=== PATIENT | female | born 1985 | race Caucasian/White ===

== ENCOUNTER 2019-03-22 06:26 | Inpatient (IN) | payer OTHER ==
[2019-03-22] MEDS ORDERED: Lactated Ringers 1000 ML Bag* 1,000 ML IV ONE (06:56)
[2019-03-22] MEDS ORDERED: ceFOXitin 2 GM IVPREMIX* 2 GM/50 ML BAG IVPB ONE (06:56)
[2019-03-22] MEDS ORDERED: Sodium Citrate/Citric Acid* 15 ML UDC PO ONE (06:56)
[2019-03-22] MEDS ORDERED: Buffered Lidocaine 1% SYRIN* 1 ML/SYRINGE INTRADERM ONE (06:56)
[2019-03-22] MEDS ORDERED: Lactated Ringers 1000 ML Bag* 1,000 ML IV SCH ×2 (07:00→10:00)
--- NOTE | 2019-03-22 07:09 | HP ---
General Information - Reason for Visit Labor evaluation - General Information Maternal Age: 33 Grav: 2 Para: 1 SAB: 0 IEA: 0 Estimated Due Date: 03/29/19 Determined By: LMP Gestational Age in Weeks/Days: 30-07 Maternal Blood Type and Rh: O Negative - Results this Serology/RPR Result: Non-Reactive Rubella Result: Immune HBsAg Result: Negative HIV Result: Negative GBS Culture Result: Positive Past Medical History Delivery History: Hx Uncomplicated Vaginal Delivery Delivery History Comment: 01/2016 7lb male. Delivered at [facility] by Jackie Galvez CNM Pertinent Past Medical History: See Records Past Medical History Comment: H/O Migraine without aura Pertinent Past Surgical History: See Records Past Surgical History Comment: 03/2010 ORIF left ankle Pertinent Family History: See Records Family History Comment: MGM: , Alzheimer's - Antepartal Records Antepartal Records: Reviewed, Complicated by: - Rh Negative. RhoGAM given per protocol at 12/29/18 at 28 weeks. Breech presentation, planned C/S Review of Systems Constitutional: Uncomfortable - with UCs CV Complaint: No Respiratory: Shortness of Breath: No Gastrointestinal: No Nausea/Vomiting Genitourinary: No Dysuria, No Bleeding, No Leaking Fluid Musculoskeletal: Contractions Neurological: No Headache, No Visual Changes Movement: Normal Exam Allergies/Adverse Reactions: Allergies No Known Allergies Allergy (Verified 03/22/19 06:31) Vital Signs 03/22/19 06:59 Temperature 98.3 F Pulse Rate 97 Respiratory 20 Rate Blood Pressure 121/70 (mmHg) O2 Sat by Pulse 100 Oximetry - Measurements Height: 5 ft 3 in Weight: 160 lb Weight in lbs: [phone] Body Mass Index (BMI): 28.3 Pre- Weight: 145 lb Weight Gained This : 15 lbs and 0 ozs - Exam Breast: Breast Exam Deferred CVA: No CVA Tenderness Extremities: No Edema Heart: Normal Rhythm/Heart Sounds HEENT: No Significant Findings Lungs: Clear Bilaterally Rectal: Rectal Exam Deferred Reflexes: DTR 2+ Thyroid: No Thyromegaly - Abdominal Exam Abdomen Exam: Non-Tender - Ultrasound/Biophysical Profile Ultrasound Status: Bedside Exam Ultrasound Findings: Breech position. Cephalic in LUQ Targeted Exam Findings See L&D Outpatient Visit Provider Note for Findings: N/A Presenting Part: Breech - by bedside sono Membrane Status: Intact Sterile Speculum Exam: Not done Bleeding/Discharge: None EFM Findings - External Monitor Findings Baseline Heart Rate: 185 External Monitor Findings: No Pattern of Variable or Late Decelerations, Variability Moderate, Baseline Stable External Monitor Findings Comment: Cat II FHT - tachycardia Contractions: Regular, Moderate Contraction Frequency: q 3-5 min Assessment/Plan - Assessment A: IUP at 39-0/7 weeks Breech presentation Cat II FHT P: Admit. Begin IV fluid. Close monitoring of status. Dr. Biswas, OB called to assess. Anesthesia and Neonatology also notified. - Obstetrical Risk Factors Obstetrical Risk Factors: GBS Positive - Plan Plan: Expedite C/S Delivery - Date/Time of Admission Date of Admission: 03/22/19 Time of Admission: 07:05
[2019-03-22] MEDS ORDERED: ceFOXitin 2 GM IVPREMIX* 2 GM/50 ML BAG ONE (07:11)
[2019-03-22] MEDS ORDERED: Sodium Citrate/Citric Acid* 15 ML UDC ONE (07:11)
[2019-03-22 08:15] LABS: Urine Benzodiazepine Screen None Detected (None Detect); Urine Opiates Screen None Detected (None Detect)
[2019-03-22] MEDS ORDERED: Naloxone* 0.4 MG/ML 1 ML VIAL IV PRN ×2 (08:59→09:00)
[2019-03-22] MEDS ORDERED: fentaNYL* 50 MCG/ML 2 ML VIAL (100 MCG VIAL) IV PRN (08:59)
[2019-03-22] MEDS ORDERED: Ondansetron INJ* 2 MG/ML VIAL IV PRN ×2 (08:59→09:00)
[2019-03-22] MEDS ORDERED: diPHENhydraMINE IV* 50 MG/ML 1 ml VIAL (BENADRYL) IV PRN (09:00)
[2019-03-22] MEDS ORDERED: Scopolamine 1.5 mg* PATCH TRANSDERM PRN (09:00)
[2019-03-22] MEDS ORDERED: DiMENhydriNATE IV* 50 MG/ML VIAL IV PUSH PRN (09:00)
[2019-03-22] MEDS ORDERED: oxyCODONE/Acetamin 5/325 MG* TAB PO PRN (09:00)
--- NOTE | 2019-03-22 09:26 | OP ---
Operative Report - Detailed - Operation Details Date of Operation: 03/22/19 Date of : 03/22/19 Surgeon(s): VANDANA Date Puller(s): LUIS FERNANDO Anesthesiologist(s): NAOMI Anesthesia: SPINAL Pre-Op Diagnosis: BREECH. 39 WEEKS. LABOR Post-Op Diagnosis: SAME Planned Operative Procedure(s): PRIMARY LOW TRANSEVERSE Estimated Blood Loss: 600CCS IV Fluids: IV FLUIDS Specimen(s)/Culture(s) Description: PLACENTA AND CORD Drains: CALLAHAN Counts: CORRECT Wound Classification: CLEAN Complications: NONE Findings: LELAND BREECH TERM FETUS, FEMALE Brief History/Indications: BREECH ,39 WK IUP. LABOR Description of Procedure: PRIMARY L/T
[2019-03-22] MEDS ORDERED: OXYTOCIN* 10 UNITS/ML 1 ML VIAL IM ONE (09:31)
[2019-03-22] MEDS ORDERED: Witch Hazel PAD* JAR TOPICAL PRN (09:31)
[2019-03-22] MEDS ORDERED: RHO D Immune Globulin (HUMAN)* 300 MCG = 1,500 I.U. INJ IM ONE (09:31)
[2019-03-22] MEDS ORDERED: PROCHLORPERAZINE INJ 5 MG/ML 2 ML VIAL IM PRN (09:31)
[2019-03-22] MEDS ORDERED: Dibucaine 1% 28.35 GM TUBE PR PRN (09:31)
[2019-03-22] MEDS ORDERED: Glycerin ADULT SUPP PR PRN (09:31)
--- NOTE | 2019-03-22 10:26 | OP ---
DATE OF OPERATION: 03/22/19 - ROOM #105 DATE OF : 89 TIME OF SURGERY: 30 minutes. SURGEON: Ana Biswas MD [employer] INTEGRATION ENGINEER: Dr. Deleon. ANESTHESIA: Spinal. PRE-OP DIAGNOSIS: A 39-week intrauterine , breech labor. POST-OP DIAGNOSIS: A 39-week intrauterine , breech labor. OPERATIVE PROCEDURE: Primary low transverse section. DRAINS: Reddy. SPECIMEN: Placenta and cord. ESTIMATED BLOOD LOSS: 600 cc. INDICATIONS FOR SURGERY: The patient had a breech in labor at 39 weeks. She was previously scheduled day before; however, she came in day early and so we proceeded with this surgery. FINDINGS: Live born female, matilde breech, 6 pounds 7 ounces, Apgars 9 and 9. The baby was born at 8:42 a.m. COMPLICATIONS: None. DESCRIPTION OF PROCEDURE: The patient was taken to an operatory. After adequate spinal anesthesia was established, she was given an indwelling Reddy catheter. The incision had been previously marked. We had time-out. After the patient was prepped, we then entered the abdominal cavity with a Pfannenstiel incision with a scalpel. Subcutaneous bleeders were cauterized with a Bovie. We entered abdominal cavity anatomically. We entered the uterine incision superior to the bladder flap with a scalpel in a transverse position. The fetus in a matilde presentation was then delivered without any incident. The oropharynx was suctioned. Cord was doubly clamped and cut. Fetus passed over the table to the hotel breakfast attendant in stable condition. Cord blood was obtained. Placenta delivered from the uterus. Uterus delivered extra -abdominally. Uterus was cleaned of debris, membranes, and tissue. Uterine incision was repaired in 2 layers, first layer was in the deep myometrium using running nonlocking #0 Vicryl. Superficial myometrium was closed with the same suture. Vesicouterine peritoneum was repaired with a running 2-0 Vicryl. Uterine incision was hemostatic. Tubes and ovaries appeared to be normal. Gutter was suctioned of blood, tissue, and membranes. All instruments were removed from the abdominal cavity. Instrument count, needle and lap count was correct. The uterus was dropped back to abdominal cavity. Anterior abdominal peritoneum was repaired with running 2-0 Vicryl. Subcutaneous fascia repaired with running 0 Vicryl. Subcutaneous tissue repaired with running 2-0 Vicryl. Skin was repaired with 3-0 Monocryl and draped with Dermabond and the usual coverings for an incision. The patient tolerated the procedure well. She was then returned to the recovery room in stable condition. [id number]/[facility] #: [id number] MTDD
[2019-03-22] MEDS: Acetaminophen TAB* 325 MG PO PRN ×3 (11:06→22:23)
[2019-03-22] MEDS: Ketorolac INJ* 30 MG/ML 1 ML VIAL IV PRN ×3 (11:07→23:56)
[2019-03-22] MEDS: Simethicone TAB* 80 MG TAB.CHEW PO SCH ×3 (11:07→22:23)
[2019-03-22] MEDS: Docusate CAP* 100 MG PO SCH ×2 (16:14→22:23)
[2019-03-22] MEDS ORDERED: Tetan/Diph/Pertus SYR(Tdap)* 0.5 ML SYR(BOOSTRIX) use SYR IM ONE (18:00)
[2019-03-22] MEDS ORDERED: Varicella Virus Vaccine Live* 0.5 ML VIAL SUBCUT ONE (18:00)
[2019-03-22] MEDS ORDERED: Measles, Mumps,Rubella VACC* 0.5 ML/VIAL SUBCUT ONE (18:00)
[2019-03-23] MEDS ORDERED: oxyCODONE/Acetamin 5/325 MG* TAB PO PRN ×2 (00:30)
[2019-03-23] MEDS ORDERED: oxyCODONE TAB* 5 MG TAB PO PRN (00:30)
[2019-03-23] MEDS: Ketorolac INJ* 30 MG/ML 1 ML VIAL IV PRN (05:05)
[2019-03-23] MEDS: Acetaminophen TAB* 325 MG PO PRN ×4 (08:45→21:16)
[2019-03-23] MEDS: Simethicone TAB* 80 MG TAB.CHEW PO SCH ×4 (08:46→21:16)
[2019-03-23] MEDS: Docusate CAP* 100 MG PO SCH ×3 (08:46→21:16)
[2019-03-23] MEDS ORDERED: Ferrous Gluconate TAB* 324 MG TAB PO SCH (09:00)
[2019-03-23 09:17] LABS: ABS Eosinophils 0.1 10^3/ul (0-0.6); ABS Lymphocytes 1.5 10^3/ul (1.0-4.8); ABS Monocytes 0.3 10^3/ul (0-0.8); ABS Neutrophils 8.9 10^3/ul (1.5-7.7); Eosinophil % 0.7 %; Hematocrit 32 % (35-47); Hemoglobin 10.9 g/dL (12.0-16.0); Lymphocyte % 13.8 %; Mean Corpuscular HGB Conc 34 g/dL (31-36); Mean Corpuscular Hemoglobin 30 pg (27-31); Mean Corpuscular Volume 87 fL (80-97); Mean Platelet Volume 8.8 fL (7.4-10.4); Platelet Count 175 10^3/uL (150-450); Red Blood Count 3.71 10^6 /uL (3.70-4.87); Red Cell Distribution Width 15 % (10-15); White Blood Count 10.8 10^3/uL (3.5-10.8)
[2019-03-23] MEDS: Ibuprofen TAB* 600 MG PO PRN ×3 (11:21→23:24)
--- NOTE | 2019-03-23 13:39 | PN ---
Progress Note - Progress Note Date of Service: 03/23/19 Note: S NO C/O'S. O Vital Signs: Temp Pulse Resp BP Pulse Ox 98.2 F 81 18 103/62 99 03/23/19 08:00 03/23/19 08:00 03/23/19 08:00 03/23/19 08:00 03/22/19 23:40 Laboratory Results - last 24 hr 03/23/19 08:59 WBC 10.8 RBC 3.71 Hgb 10.9 L Hct 32 L MCV 87 MCH 30 MCHC 34 RDW 15 Plt Count 175 MPV 8.8 Neut % (Auto) 82.0 Lymph % (Auto) 13.8 Knott % (Auto) 3.1 Eos % (Auto) 0.7 Baso % (Auto) 0.4 Absolute Neuts (auto) 8.9 H Absolute Lymphs (auto) 1.5 Absolute Monos (auto) 0.3 Absolute Eos (auto) 0.1 Absolute Basos (auto) 0.0 Absolute Nucleated RBC 0.0 Nucleated RBC % 0.0 ABD SOFT WOUND NON-TENDER LOCHIA LITE BREAST SOFT A PT IS DOING WELL. REGULAR DIET. CALLAHAN OUT. PD/C IN 2 DAYS.
[2019-03-23] MEDS ORDERED: Zolpidem TAB* 5 MG PO PRN (21:00)
[2019-03-24] MEDS: Acetaminophen TAB* 325 MG PO PRN ×3 (01:30→10:28)
[2019-03-24] MEDS: Ibuprofen TAB* 600 MG PO PRN ×2 (05:29→11:23)
[2019-03-24 07:52] VITALS: BP 109/62
[2019-03-24] MEDS: Docusate CAP* 100 MG PO SCH (08:04)
[2019-03-24] MEDS: Simethicone TAB* 80 MG TAB.CHEW PO SCH (08:04)
[2019-03-25] MEDS ORDERED: Scopolamine PATCH Remove* 1 NOTE MISC PATCH OFF PRN (09:01)
== END 2019-03-24 12:30 | disposition home or self-care (01) | DRG 788 ==
LOC: MCHOBOUT 06:26 → MCHOB 06:58
PROC: 4A1HXCZ Monitoring of Products of Conception, Cardiac Rate, External Approach (ICD-10-PCS; 2019-03-22)
PROC: 10D00Z1 Extraction of Products of Conception, Low, Open Approach (ICD-10-PCS; principal; 2019-03-22 08:18)
DX: O32.1XX0 Maternal care for breech presentation, not applicable or unspecified (principal); O99.824 Streptococcus B carrier state complicating childbirth; O76 Abnormality in fetal heart rate and rhythm complicating labor and delivery; Z3A.39 39 weeks gestation of pregnancy; Z37.0 Single live birth; Z67.41 Type O blood, Rh negative
CPT/HCPCS: 36415; 80307; 85025; A9270-GY; J0694; J1885